=== PATIENT | female | born 1985 | race Caucasian/White ===

== ENCOUNTER 2018-10-03 16:19 | Emergency (ER) | payer MEDICAID ==
[~2018-10-03] VITALS: Ht 165.1 cm; Wt 59.1 kg
[2018-10-03 17:45] VITALS: BP 120/80
[2018-10-03] MEDS ORDERED: LORazepam 2 MG TABLET PO ONE (18:00)
== END 2018-10-03 18:43 | disposition home or self-care (01) ==
LOC: EMS 16:21
DX: K70.30 Alcoholic cirrhosis of liver without ascites (principal); F10.20 Alcohol dependence, uncomplicated; F17.210 Nicotine dependence, cigarettes, uncomplicated
CPT/HCPCS: 99406